=== PATIENT | female | born 1980 | race Caucasian/White ===

== ENCOUNTER → 2016-12-14 | Day surgery (SDC) | payer OTHER ==
[~2016-12-14] VITALS: Ht 162.6 cm; Wt 72.6 kg
[~2016-12-14] MED LIST: AMARYL4 MG PO; AMBIEN10 MG PO; CYMBALTA60 MG PO; GABAPENTIN300 MG PO; HUMALOG100 UNIT/3 SUB-Q; LEVEMIR FL100 UNIT/1 SUB-Q; PERCOCET 7.5-31 EACH PO; TRAZODONE HCL300 MG PO; XANAX0.5 MG PO; XANAX2 MG PO; ZANAFLEX4 MG PO
--- NOTE | ~2016-12-14 | OR ---
PATIENT'S NAME: CHUCK SPEARS [facility] AGE: 35 Y [address] ROOM: [place] [address] [place] [facility] [place]: 12[place]14[place]2016 OR/Procedure Report DISCHARGE DATE: FAMILY PHYSICIAN: Caitlin Farrar APRN ATTENDING PHYSICIAN: Florin Saul SURGEON: Florin Saul MD [employer]IC: DATE OF PROCEDURE: 12/14/2016 PREOPERATIVE DIAGNOSIS: 8-mm left nephrolithiasis. POSTOPERATIVE DIAGNOSIS: 8-mm left nephrolithiasis. PROCEDURE: 1. Cystoscopy with left stent placement. 2. Left extracorporeal shock wave lithotripsy. ANESTHESIA: Sedation. INDICATION: This is a 35-year-old lady with an 8 mm left-sided stone. She presents for elective treatment. With her ongoing pain symptoms, I recommended stenting. DESCRIPTION OF PROCEDURE: Having obtained her informed consent, the patient was taken first to the cystoscopy suite. She was prepped and draped sterilely and in lithotomy position. IV sedation was administered. She has had concerns about "yeast infections." I note no inflammation or discharge. Cystoscopy reveals unremarkable bladder, on careful examination using the 30- and 70-degree lenses. Under fluoroscopy, the stone is easily visualized. I passed a guidewire to it, appears to be at the ureteropelvic junction. Over that guidewire, I passed a 4.8 x 26 cm stent using cystoscopic and fluoroscopic visualization. We have a nice level of placement. The bladder was drained and she is moved to the lithotripsy suite. The stone was brought into the second focal point ellipsoid and fragmentation begun. We started at 14 kV and worked up to a maximum of 24 kV. After 2800 impulses, the stone appeared to be completely fragmented. The patient tolerated the procedure well. BLOOD LOSS: Negligible. SPECIMENS: No specimens were sent. PATIENT'S NAME: CHUCK SPEARS [facility] AGE: 35 Y [address] ROOM: [place] [address] [place] [facility] [place]: 12/14/2016 OR/Procedure Report DISCHARGE DATE: FAMILY PHYSICIAN: Caitlin Farrar APRN ATTENDING PHYSICIAN: Florin Saul The patient returned to the outpatient recovery, awake and stable condition. MD RUBY KEITH/[email or web address] /[id number] CC: Caitlin Farrar APRN d: t: 12/14/16 1145, OPERATIVE SUMMARY
--- NOTE | 2016-12-14 18:33 | NUR ---
1035 PT AWAKE, ASKS WHAT PAIN PILL DR WELDON IS SENDING HOME WITH HER. EXCPLAINED TO PT THAT SHE HAS PERCOCET AT HOME ALREADY AND DR WELDON DID NOT WRITE A SCRIPT OUT FOR HER. PT STATES ONLY HAS 3 LEFT AND WON'T SEE HER DR IN [place] UNTIL THE . 1040 DR WELDON NOTIFIED OF PT'S REQUEST. NO ORDER RECEIVED 1045 WHEN THIS NURSE WALKED BACK INTO PT'S ROOM PT WAS ON THE PHONE WITH HER DR'S NURSE IN [place] STATING THAT SHE HAD "A TRAUMATIC SURGERY" AND HER PHYSICIAN WOULD NOT ORDER ANY PAIN MEDS AND WOULD THEY ORDER HYDROCODONE FOR HER. 1050 PT'S MOTHER IN ROOM, ASKS IF SHE IS GETTING PAIN PILLS TO GO HOME, EXPLAINED TO HER THAT DR WELDON WAS NOT SENDING ANY AND THAT PT HAD CALLED HER PHYSICIAN IN [place] AND THAT DR WELDON HAD BEEN NOTIFIED THAT PT HAD DONE THIS ASKING FOR PAIN MEDS
== END ==
LOC: GPOC 12-10 11:00 → GSDC 08:35 → GPOC 11:00
PROC: 0TF4XZZ Fragmentation in Left Kidney Pelvis, External Approach (ICD-10-PCS; principal; 2016-12-14)
PROC: 0T778DZ Dilation of Left Ureter with Intraluminal Device, Via Natural or Artificial Opening Endoscopic (ICD-10-PCS; 2016-12-14)
DX: N20.0 Calculus of kidney (principal); F32.9 Major depressive disorder, single episode, unspecified; F41.9 Anxiety disorder, unspecified; M17.9 Osteoarthritis of knee, unspecified; E10.9 Type 1 diabetes mellitus without complications
CPT/HCPCS: C1769; J1956; J2001; J7030